=== PATIENT | male | born 1975 | race Caucasian/White ===

== ENCOUNTER 2017-01-22 11:40 | Inpatient (IN) | payer OTHER ==
[~2017-01-22] VITALS: Ht 177.8 cm; Wt 99.4 kg
[~2017-01-22 11:40] MED LIST: ANAPROX DS550 M1 PO; LITHIUM; NOHOMEMEDS; OXYCODONE; PROZAC
[2017-01-22 12:06] LABS: EOSINOPHIL (%) 0.4 % (0-5); HEMATOCRIT 34.4 % (38.0-50.0); IMMATURE GRANULOCYTE (%) 0.8 % (0.0-0.7); INSTRUMENT ABS NEUTROPHIL CT 4.4 K/uL; LYMPHOCYTE COUNT 0.6 K/uL (1.0-2.8); MCH 30.8 PG (29.0-34.0); MCHC 31.7 G/DL (30.0-36.0); MCV 97.2 FL (86-99); MEAN PLAT.VOLUME 10.1 uM^3 (9.0-12.4); MONOCYTE (%) 3.5 % (3-12); MONOCYTE COUNT 0.2 K/uL (0-0.8); NEUTROPHIL (%) 84.2 % (45-76); NEUTROPHIL COUNT 4.4 K/uL (1.8-6.4); PLATELET COUNT 136 K/uL (156-360); RBC DIS.WIDTH-CV 13.6 % (11.8-14.6); RBC DIS.WIDTH-SD 49.2 % (39-53); RED BLOOD COUNT 3.54 M/uL (4.00-5.50); WHITE BLOOD COUNT 5.2 K/uL (4.1-10.2)
[2017-01-22 12:26] LABS: CHLORIDE 84 mEq/L (99-109); POTASSIUM 5.5 mEq/L (3.7-5.4)
[2017-01-22 12:27] LABS: GLUCOSE 75 mg/dL (70-99)
[2017-01-22 12:29] LABS: ANION GAP 23 MEQ/L (2-14)
[2017-01-22 12:31] LABS: GFR ESTIMATE (CALCULATED) 48 mL/min/; SERUM ETHYL ALCOHOL < 10 mg/dL; SODIUM 118 mEq/L (136-147)
[2017-01-22 12:33] LABS: UREA NITROGEN (BUN) 18 mg/dL (9-23)
[2017-01-22 12:34] LABS: SALICYLATE < 5.0 MG/DL (15-30)
[2017-01-22 12:35] LABS: BICARBONATE 22.4 mEq/L (22-26); CARBOXY HGB 1.6 % (0-5); METHEMOGLOBIN 0.6 % (0-1.5); PCO2 72 mm Hg (35-45); PO2 64 mm Hg (80-100)
[2017-01-22 12:36] LABS: COMMENTS - BLOOD GASES C+; DEVICE VENT; FI02 100 %; MECHANICAL RATE 16 resp/min; MODE AC; PEEP 10 CM/H20; SITE LB; TIDAL VOLUME 500 ML; TOTAL RESP RATE 16 resp/min
[2017-01-22 12:38] LABS: TROP-I INTERPRETATION NEGATIVE; TROPONIN-I 0.12 ng/mL (0.0-0.30)
[2017-01-22 12:57] LABS: ADD MEDTOX COMMENT Y; AMPHETAMINE NEGATIVE (500 ng/mL); BARBITURATES NEGATIVE (200 ng/mL); BENZODIAZEPINES PRESUMPTIVE POSITIVE (150 ng/mL); COCAINE NEGATIVE (150 ng/mL); INTERNAL CONTROLS VALID? YES; METHADONE NEGATIVE (200 ng/mL); METHAMPHETAMINE NEGATIVE (500 ng/mL); OPIATES (MORPHINE) NEGATIVE (100 ng/mL); OXYCODONE PRESUMPTIVE POSITIVE (100 ng/mL); PHENCYCLIDINE NEGATIVE (25 ng/mL); PROPOXYPHENE NEGATIVE (300 ng/mL); THC CANNABINOIDS NEGATIVE (50 ng/mL); TRICYCLIC ANTIDEPRESSANTS NEGATIVE (300 ng/mL)
[2017-01-22 13:45] LABS: BENZODIAZEPINES, URINE SCREEN POSITIVE (200 ng/mL)
[2017-01-22 14:07] LABS: BASE EXCESS -8.9 mEq/L (-3 to +3); BICARBONATE 19.8 mEq/L (22-26); CARBOXY HGB 1.1 % (0-5); PO2 71 mm Hg (80-100)
[2017-01-22 14:09] LABS: COMMENTS - BLOOD GASES C+; DEVICE VENT; FI02 100 %; MECHANICAL RATE 20 resp/min; MODE AC; PCO2 53 mm Hg (35-45); PEEP 10 CM/H20; SITE LB; TIDAL VOLUME 500 ML; TOTAL RESP RATE 27 resp/min; pH 7.18 (7.35-7.45)
[2017-01-22 14:20] LABS: CREATINE KINASE 2238 IU/L (1-294)
[2017-01-22 14:32] LABS: ADD MIUA? YES; BILIRUBIN NEGATIVE; BLOOD MODERATE; COLOR YELLOW ((YELLOW)); GLUCOSE (STRIP) NEGATIVE; KETONES NEGATIVE; LEUKOCYTES NEGATIVE; NITRITE NEGATIVE; PROTEIN (STRIP) NEGATIVE; SPECIFIC GRAVITY 1.011 (1.000-1.030); UROBILINOGEN 0.2 MG/DL (0.2-1.0)
[2017-01-22 14:35] LABS: BACTERIA NONE SEEN /HPF; EPITHELIAL CELLS NONE SEEN /HPF; HYALINE CASTS 15-20 /LPF; MUCUS 1+ /LPF; RED BLOOD CELLS NONE SEEN /HPF (0-5); UCUL ADDED? NO; WHITE BLOOD CELLS 0-5 /HPF (0-5)
[2017-01-22 17:48] VITALS: BP 131/70
[2017-01-22 17:52] VITALS: BP 131/71
[2017-01-22 18:00] VITALS: BP 127/69
[2017-01-22 18:15] VITALS: BP 120/72
[2017-01-22 18:30] VITALS: BP 119/60
[2017-01-22 18:55] LABS: MAGNESIUM 2.3 mg/dL (1.3-2.7)
[2017-01-22 18:58] LABS: ANION GAP 11 MEQ/L (2-14)
[2017-01-22 18:59] LABS: TOTAL BILIRUBIN 0.6 mg/dL (0.0-1.0)
[2017-01-22 19:01] LABS: ALKALINE PHOSPHATASE 41 IU/L (3-129)
[2017-01-22 19:02] LABS: DIRECT BILIRUBIN 0.2 mg/dL (0.0-0.3)
[2017-01-22 19:06] LABS: CHLORIDE 107 mEq/L (99-109); GFR ESTIMATE (CALCULATED) 32 mL/min/; GLUCOSE 108 mg/dL (70-99); SODIUM 135 mEq/L (136-147); UREA NITROGEN (BUN) 30 mg/dL (9-23)
[2017-01-22 19:13] LABS: METH RESISTANT S AUREUS PCR NEGATIVE (NEGATIVE)
[2017-01-22 19:14] LABS: PROBE CHECK PASS; SPECIMEN PROCESSING CONTROL PASS
[2017-01-22 20:22] LABS: BASE EXCESS -5.3 mEq/L (-3 to +3); BICARBONATE 21.2 mEq/L (22-26); CARBOXY HGB 1.5 % (0-5); COMMENTS - BLOOD GASES A+; DEVICE 980; FI02 90 %; MECHANICAL RATE 20 resp/min; METHEMOGLOBIN 1.4 % (0-1.5); MODE ACVC+; PCO2 44 mm Hg (35-45); PEEP 15 CM/H20; PO2 67 mm Hg (80-100); SITE ALINE; TIDAL VOLUME 510 ML; TOTAL RESP RATE 22 resp/min; pH 7.29 (7.35-7.45)
[2017-01-22 23:48] LABS: BASE EXCESS -2.2 mEq/L (-3 to +3); BICARBONATE 23.2 mEq/L (22-26); COMMENTS - BLOOD GASES A+; DEVICE 980; FI02 90 %; MECHANICAL RATE 26 resp/min; METHEMOGLOBIN 1.7 % (0-1.5); MODE ACVC+; PCO2 41 mm Hg (35-45); PO2 159 mm Hg (80-100); SITE ALINE; TIDAL VOLUME 510 ML; TOTAL RESP RATE 26 resp/min; pH 7.36 (7.35-7.45)
[2017-01-22 23:49] LABS: PEEP 15 CM/H20
[2017-01-23] VITALS (8 sets, daily range): BP systolic 117–143; BP diastolic 69–79
[2017-01-23 00:32] LABS: POINT-OF-CARE METER ID UU13113803; POINT-OF-CARE USER ID LABHNS84
[2017-01-23 00:44] LABS: INTER. NORMALIZED RATIO 1.2; PROTHROMBIN TIME 12.5 (9.2-11.2); PTT 27.9 (25-32)
[2017-01-23 00:46] LABS: CHLORIDE 107 mEq/L (99-109); POTASSIUM 4.4 mEq/L (3.7-5.4); SODIUM 138 mEq/L (136-147)
[2017-01-23 00:47] LABS: MAGNESIUM 1.8 mg/dL (1.3-2.7)
[2017-01-23 00:48] LABS: GLUCOSE 130 mg/dL (70-99)
[2017-01-23 00:50] LABS: ANION GAP 9 MEQ/L (2-14); TOTAL BILIRUBIN 0.5 mg/dL (0.0-1.0)
[2017-01-23 00:52] LABS: ALKALINE PHOSPHATASE 32 IU/L (3-129); GFR ESTIMATE (CALCULATED) 40 mL/min/
[2017-01-23 00:53] LABS: UREA NITROGEN (BUN) 30 mg/dL (9-23)
[2017-01-23 00:58] LABS: TROP-I INTERPRETATION POSITIVE; TROPONIN-I 0.65 ng/mL (0.0-0.30)
[2017-01-23 01:26] LABS: INFLUENZA A VIRAL ANTIGEN NEGATIVE; INFLUENZA B VIRAL ANTIGEN NEGATIVE
[2017-01-23 02:55] LABS: CREATINE KINASE 19807 IU/L (1-294); SAMPLE HEMOLYSIS CHECK 0; SAMPLE ICTERIC CHECK 0; SAMPLE LIPEMIA CHECK 0; TOTAL CK 19807 IU/L (1-294)
[2017-01-23 05:28] LABS: POINT-OF-CARE METER ID UU13113803; POINT-OF-CARE USER ID LABHNS84
[2017-01-23 05:36] LABS: BASE EXCESS -0.3 mEq/L (-3 to +3); BICARBONATE 25.4 mEq/L (22-26); CARBOXY HGB 1.3 % (0-5); COMMENTS - BLOOD GASES A+; DEVICE 980; FI02 55 %; METHEMOGLOBIN 1.7 % (0-1.5); MODE SPONT; PCO2 45 mm Hg (35-45); PO2 110 mm Hg (80-100); SITE ALINE; pH 7.36 (7.35-7.45)
[2017-01-23 05:37] LABS: PEEP 10 CM/H20; PRES. SUPPORT 5 CM/H2O; TOTAL RESP RATE 17 resp/min
[2017-01-23 06:26] LABS: ALKALINE PHOSPHATASE 32 IU/L (3-129); ANION GAP 8 MEQ/L (2-14); CHLORIDE 104 MEQ/L (99-109); GFR ESTIMATE (CALCULATED) 42 mL/min/; GLUCOSE 106 mg/dL (70-99); MAGNESIUM 1.9 mg/dl (1.3-2.7); POTASSIUM 4.6 MEQ/L (3.7-5.4); SAMPLE HEMOLYSIS CHECK 0; SAMPLE ICTERIC CHECK 0; SAMPLE LIPEMIA CHECK 0; SODIUM 138 MEQ/L (136-147); TOTAL BILIRUBIN 0.8 MG/DL (0.0-1.0); UREA NITROGEN (BUN) 28 mg/dL (9-23)
[2017-01-23 06:27] LABS: HEMATOCRIT 36.7 % (38.0-50.0); MCH 30.6 PG (29.0-34.0); MCHC 33.8 G/DL (30.0-36.0); MEAN PLAT.VOLUME 10.3 uM^3 (9.0-12.4); PLATELET COUNT 141 K/uL (156-360); RBC DIS.WIDTH-CV 13.7 % (11.8-14.6); RBC DIS.WIDTH-SD 45.9 % (39-53); RED BLOOD COUNT 4.05 M/uL (4.00-5.50)
[2017-01-23 06:28] LABS: TROP-I INTERPRETATION INDETERMINATE; TROPONIN-I 0.54 ng/mL (0.0-0.30)
[2017-01-23 06:31] LABS: MCV 90.6 FL (86-99); WHITE BLOOD COUNT 9.9 K/uL (4.1-10.2)
[2017-01-23 07:03] LABS: ABS NEUTROPHIL COUNT 8.3; BAND NEUTROPHILS 44.3 % (0-8.0); EOSINOPHIL ABS CT 0; LYMPHOCYTES 2.7 % (15.0-45.0); MACROCYTES 1+; METAMYELOCYTES 8.8 %; PLAT.SUFFICIENCY ADEQUATE; POLYCHROMASIA 1+; SEG.NEUTROPHILS 39.8 % (46.0-76.0); TOXIC GRANULATION 1+
[2017-01-23 07:19] LABS: CREATINE KINASE 19976 IU/L (1-294); TOTAL CK 19976 IU/L (1-294)
[2017-01-23 11:15] LABS: HBSG INDEX 0.27; HPCA INDEX 0.08
[2017-01-23 11:47] LABS: BASE EXCESS 1.5 mEq/L (-3 to +3); BICARBONATE 26.6 mEq/L (22-26); CARBOXY HGB 1.7 % (0-5); COMMENTS - BLOOD GASES C+; CONTINUOUS POS AIRWAY PRESSURE 5 cm H2O; DEVICE 980 VENT; FI02 40 %; METHEMOGLOBIN 1.5 % (0-1.5); PCO2 43 mm Hg (35-45); PO2 68 mm Hg (80-100); SITE RB; TOTAL RESP RATE 18 resp/min
[2017-01-23 11:54] LABS: POINT-OF-CARE METER ID UU13113803
[2017-01-23 12:08] LABS: ANION GAP 6 MEQ/L (2-14); CHLORIDE 106 MEQ/L (99-109); GFR ESTIMATE (CALCULATED) 51 mL/min/; GLUCOSE 104 mg/dL (70-99); POTASSIUM 4.1 MEQ/L (3.7-5.4); SAMPLE HEMOLYSIS CHECK 0; SAMPLE ICTERIC CHECK 0; SAMPLE LIPEMIA CHECK 0; SODIUM 139 MEQ/L (136-147); UREA NITROGEN (BUN) 26 mg/dL (9-23)
[2017-01-23 12:16] LABS: TROP-I INTERPRETATION INDETERMINATE
[2017-01-23 12:32] LABS: TOTAL CK 18016 IU/L (1-294)
[2017-01-23 12:33] LABS: CREATINE KINASE 18016 IU/L (1-294)
[2017-01-23 12:38] LABS: CK-MB 62.5 ng/mL (0.0-4.9)
[2017-01-23 17:33] LABS: POINT-OF-CARE METER ID UU13113803
[2017-01-23 18:19] LABS: TROP-I INTERPRETATION NEGATIVE
[2017-01-23 18:35] LABS: TOTAL CK 16513 IU/L (1-294)
[2017-01-23 18:45] LABS: CREATINE KINASE 16513 IU/L (1-294)
[2017-01-23 18:50] LABS: CK-MB 42.5 ng/mL (0.0-4.9)
[2017-01-23 20:56] LABS: ANION GAP 10 MEQ/L (2-14); CHLORIDE 105 MEQ/L (99-109); POTASSIUM 3.8 MEQ/L (3.7-5.4); SODIUM 139 MEQ/L (136-147)
[2017-01-23 21:02] LABS: GFR ESTIMATE (CALCULATED) > 59 mL/min/; GLUCOSE 113 mg/dL (70-99); UREA NITROGEN (BUN) 23 mg/dL (9-23)
[2017-01-24] VITALS (16 sets, daily range): BP systolic 124–156; BP diastolic 73–85
[2017-01-24 06:20] LABS: HEMATOCRIT 30.2 % (38.0-50.0); MCH 30.8 PG (29.0-34.0); MCHC 34.1 G/DL (30.0-36.0); MCV 90.4 FL (86-99); RBC DIS.WIDTH-CV 13.5 % (11.8-14.6); RBC DIS.WIDTH-SD 45.5 % (39-53); RED BLOOD COUNT 3.34 M/uL (4.00-5.50); WHITE BLOOD COUNT 11.5 K/uL (4.1-10.2)
[2017-01-24 06:22] LABS: MAGNESIUM 2.1 mg/dl (1.3-2.7)
[2017-01-24 07:11] LABS: GIANT PLATELETS 6; PLATELET CLUMPS PRESENT
[2017-01-24 07:13] LABS: ABS NEUTROPHIL COUNT 10.8; EOSINOPHIL ABS CT 0; INSTRUMENT ABS NEUTROPHIL CT 10.3 K/uL; SMUDGE CELLS 1.7
[2017-01-24 10:17] LABS: ANION GAP 6 MEQ/L (2-14); CHLORIDE 107 MEQ/L (99-109); GFR ESTIMATE (CALCULATED) > 59 mL/min/; GLUCOSE 109 mg/dL (70-99); POTASSIUM 3.7 MEQ/L (3.7-5.4); SODIUM 139 MEQ/L (136-147); UREA NITROGEN (BUN) 19 mg/dL (9-23)
[2017-01-24 10:57] LABS: CREATINE KINASE 11479 IU/L (1-294)
[2017-01-25] VITALS (7 sets, daily range): BP systolic 123–147; BP diastolic 73–95
[2017-01-25 05:52] LABS: HEMATOCRIT 32.6 % (38.0-50.0); MCH 30.6 PG (29.0-34.0); MCHC 33.7 G/DL (30.0-36.0); MCV 90.6 FL (86-99); MEAN PLAT.VOLUME 10.3 uM^3 (9.0-12.4); PLATELET COUNT 132 K/uL (156-360); RBC DIS.WIDTH-CV 13.3 % (11.8-14.6); RBC DIS.WIDTH-SD 44.4 % (39-53); WHITE BLOOD COUNT 12.3 K/uL (4.1-10.2)
[2017-01-25 06:28] LABS: ANION GAP 7 MEQ/L (2-14); CHLORIDE 107 MEQ/L (99-109); GFR ESTIMATE (CALCULATED) > 59 mL/min/; GLUCOSE 97 mg/dL (70-99); MAGNESIUM 1.9 mg/dl (1.3-2.7); POTASSIUM 3.7 MEQ/L (3.7-5.4); SAMPLE HEMOLYSIS CHECK 0; SAMPLE ICTERIC CHECK 0; SAMPLE LIPEMIA CHECK 0; SODIUM 141 MEQ/L (136-147); UREA NITROGEN (BUN) 15 mg/dL (9-23)
[2017-01-25 06:37] LABS: ABS NEUTROPHIL COUNT 11.1; EOSINOPHIL ABS CT 0; HEMATOLOGY COMMENT 1 SN; INSTRUMENT ABS NEUTROPHIL CT 10.4 K/uL; LYMPHOCYTES 8.7 % (15.0-45.0); PLAT.SUFFICIENCY ADEQUATE
[2017-01-25 06:41] LABS: BAND NEUTROPHILS 8.7 % (0-8.0); SEG.NEUTROPHILS 81.7 % (46.0-76.0)
[2017-01-26] VITALS (8 sets, daily range): BP systolic 102–143; BP diastolic 66–83
[2017-01-26 05:55] LABS: EOSINOPHIL COUNT 0.1 K/uL (0-0.3); HEMATOCRIT 35.5 % (38.0-50.0); IMMATURE GRANULOCYTE (%) 0.5 % (0.0-0.7); IMMATURE GRANULOCYTE COUNT 0.1 K/uL; INSTRUMENT ABS NEUTROPHIL CT 6.8 K/uL; LYMPHOCYTE COUNT 1.8 K/uL (1.0-2.8); MCH 30.2 PG (29.0-34.0); MCHC 33.8 G/DL (30.0-36.0); MCV 89.4 FL (86-99); MEAN PLAT.VOLUME 10.4 uM^3 (9.0-12.4); MONOCYTE (%) 7.7 % (3-12); MONOCYTE COUNT 0.7 K/uL (0-0.8); NEUTROPHIL (%) 71.8 % (45-76); NEUTROPHIL COUNT 6.8 K/uL (1.8-6.4); PLATELET COUNT 153 K/uL (156-360); RBC DIS.WIDTH-CV 13.2 % (11.8-14.6); RBC DIS.WIDTH-SD 43.3 % (39-53); RED BLOOD COUNT 3.97 M/uL (4.00-5.50); WHITE BLOOD COUNT 9.5 K/uL (4.1-10.2)
[2017-01-26 09:04] LABS: D-DIMER ELISA > 4.00 mg/L FEU (< 0.57)
[2017-01-26 09:18] LABS: ALKALINE PHOSPHATASE 49 IU/L (3-129); ANION GAP 9 MEQ/L (2-14); CHLORIDE 105 MEQ/L (99-109); GFR ESTIMATE (CALCULATED) > 59 mL/min/; GLUCOSE 97 mg/dL (70-99); MAGNESIUM 1.8 mg/dl (1.3-2.7); POTASSIUM 3.3 MEQ/L (3.7-5.4); SAMPLE HEMOLYSIS CHECK 0; SAMPLE ICTERIC CHECK 0; SAMPLE LIPEMIA CHECK 0; SODIUM 142 MEQ/L (136-147); TOTAL BILIRUBIN 0.7 MG/DL (0.0-1.0); UREA NITROGEN (BUN) 21 mg/dL (9-23)
[2017-01-26 09:25] LABS: CREATINE KINASE 3990 IU/L (1-294)
[2017-01-27] VITALS: BP 115/67
[2017-01-27 05:00] VITALS: BP 122/79
[2017-01-27 06:07] LABS: MCH 30.5 PG (29.0-34.0); MCHC 34.5 G/DL (30.0-36.0); MCV 88.6 FL (86-99); MEAN PLAT.VOLUME 10.2 uM^3 (9.0-12.4); PLATELET COUNT 178 K/uL (156-360); RBC DIS.WIDTH-CV 13.2 % (11.8-14.6); RBC DIS.WIDTH-SD 42.5 % (39-53); RED BLOOD COUNT 4.29 M/uL (4.00-5.50); WHITE BLOOD COUNT 10.3 K/uL (4.1-10.2)
[2017-01-27 06:42] LABS: ALKALINE PHOSPHATASE 54 IU/L (3-129); ANION GAP 9 MEQ/L (2-14); CHLORIDE 109 MEQ/L (99-109); CREATINE KINASE 1927 IU/L (1-294); GFR ESTIMATE (CALCULATED) > 59 mL/min/; GLUCOSE 99 mg/dL (70-99); POTASSIUM 4.5 MEQ/L (3.7-5.4); SAMPLE HEMOLYSIS CHECK 0; SAMPLE ICTERIC CHECK 0; SAMPLE LIPEMIA CHECK 0; SODIUM 146 MEQ/L (136-147); TOTAL BILIRUBIN 0.7 MG/DL (0.0-1.0); UREA NITROGEN (BUN) 24 mg/dL (9-23)
[2017-01-27 07:25] LABS: EOSINOPHIL (%) 1.7 % (0-5); EOSINOPHIL COUNT 0.2 K/uL (0-0.3); HEMATOLOGY COMMENT 1 SMEAR COMPATIBLE; IMMATURE GRANULOCYTE (%) 2.1 % (0.0-0.7); IMMATURE GRANULOCYTE COUNT 0.2 K/uL; INSTRUMENT ABS NEUTROPHIL CT 7.2 K/uL; LYMPHOCYTE COUNT 1.8 K/uL (1.0-2.8); MONOCYTE (%) 7.6 % (3-12); MONOCYTE COUNT 0.8 K/uL (0-0.8); NEUTROPHIL (%) 70.5 % (45-76); NEUTROPHIL COUNT 7.2 K/uL (1.8-6.4)
[2017-01-27] MEDS ORDERED: FOLIC ACID1 MG PO (07:41)
[2017-01-27] MEDS ORDERED: Thiamine,Vitamin B1 PO (07:41)
[2017-01-27] MEDS ORDERED: AUGMENTIN875 MG PO (07:41)
[2017-01-27] MEDS ORDERED: FLUOXETINE HCL10 MG PO (07:41)
[2017-01-27 08:00] VITALS: BP 120/79
== END 2017-01-27 09:25 | disposition home or self-care (01) | DRG 208 ==
LOC: EME 11:40 → EDOF 16:14 → 4WEST 16:14
PROVIDERS: Emergency Medicine; Hospitalist; Internal Medicine Nephrology; Obstetrics & Gynecology
DX: J96.00 Acute respiratory failure, unspecified whether with hypoxia or hypercapnia (principal); T42.4X1A Poisoning by benzodiazepines, accidental (unintentional), initial encounter; J69.0 Pneumonitis due to inhalation of food and vomit; R57.8 Other shock; E87.1 Hypo-osmolality and hyponatremia; N17.9 Acute kidney failure, unspecified; M62.82 Rhabdomyolysis; T40.2X1A Poisoning by other opioids, accidental (unintentional), initial encounter; R41.82 Altered mental status, unspecified; I95.2 Hypotension due to drugs; E83.51 Hypocalcemia; R74.0 Nonspecific elevation of levels of transaminase and lactic acid dehydrogenase [LDH]; E87.2 Acidosis; G93.40 Encephalopathy, unspecified; F11.10 Opioid abuse, uncomplicated; J81.1 Chronic pulmonary edema; E83.39 Other disorders of phosphorus metabolism; R00.0 Tachycardia, unspecified; F32.9 Major depressive disorder, single episode, unspecified; Z72.89 Other problems related to lifestyle
CPT/HCPCS: 36600; 36620; 70450; 71010; 71275; 80048; 80048 91; 80053; 80076; 81003; 82330; 82533 91; 82550; 82550 91; 82553; 82803; 82948; 83605; 83735; 83874 90; 83930; 83935; 84100; 84300; 84443; 84484; 84999; 85025; 85379; 85610; 85730; 86803; 87040; 87070; 87077; 87086; 87181; 87205; 87340; 87502; 87641; 87801; 93005; 93306; 94002; 94003; 94010; 94640; 94640 76; 94760; 94799; 99202; 99281; 99285; G0480; J0330; J0610; J0696; J1644; J1815; J1940; J2310; J2543; J2704; J3475; J7030; J7050; J7070; J7120; P9045; S0028